=== PATIENT | female | born 1975 | race Caucasian/White ===

== ENCOUNTER 2018-03-07 10:13 | Day surgery (SDC) | payer OTHER ==
[2018-02-27 16:22] VITALS: BMI 22.8
[2018-03-07] MEDS ORDERED: PROPOFOL 20 ML ONE ×2 (10:19)
[2018-03-07] MEDS ORDERED: LIDOCAINE HCL/PF 2% SDV 5ML VIAL ONE (10:19)
[2018-03-07 11:35] VITALS: TEMP 97.6
[2018-03-07 12:25] VITALS: BP 106/64; PULSE 76
--- NOTE | 2018-03-09 16:13 | PATH ---
Surgical Pathology Report Patient Name: ALEENA ALMARAZ [facility]. Rec. #: [id number] /Age/Gender: 1975 (Age: 43) / F Account: [id number] Location: [facility] Taken: 03/07/2018 Received: 03/07/2018 Reported: 03/09/2018 Physicians: Yue Mary M.D. Specimen(s) Received A: BX SECOND PORTION OF DUODENUM B: BX ANTRUM C: BX GE JUNCTION Clinical History Anemia Postoperative diagnosis: Gastritis Final Diagnosis A. SECOND PORTION OF DUODENUM, BIOPSY: DUODENAL MUCOSA WITH NO PATHOLOGIC FINDINGS. B. ANTRUM, BIOPSY: SEVERE CHRONIC ACTIVE GASTRITIS. IMMUNOSTAIN SHOWS NUMEROUS H. PYLORI ORGANISMS. C. GE JUNCTION, BIOPSY: ESOPHAGOGASTRIC JUNCTIONAL (SQUAMOCOLUMNAR) MUCOSA SHOWING MODERATE CHRONIC INFLAMMATION AND REFLUX-ASSOCIATED CHANGES. NEGATIVE FOR INTESTINAL METAPLASIA. Electronically Signed Kinjal Blake M.D. Gross Description A. Received in formalin, labeled "biopsy second portion of duodenum" is a sharma, irregular portion of soft tissue measuring 0.3 cm. in greatest dimension. The specimen is submitted in toto in one cassette. B. Received in formalin, labeled "biopsy antrum" are 2 sharma, irregular portions of soft tissue measuring 0.3 and 0.4 cm. in greatest dimension. The specimens are submitted in toto in one cassette. C. Received in formalin, labeled "biopsy GE junction" is a sharma, irregular portion of soft tissue measuring 0.3 cm. in greatest dimension. The specimen is submitted in toto in one cassette. 03/08/201803/08/2018
== END 2018-03-07 12:15 | disposition home or self-care (01) ==
LOC: FASU-ENDO 10:13
PROVIDERS: ATTEND Internal Medicine Gastroenterology
PROC: 0DB68ZX Excision of Stomach, Via Natural or Artificial Opening Endoscopic, Diagnostic (ICD-10-PCS; 2018-03-07)
PROC: 0DB48ZX Excision of Esophagogastric Junction, Via Natural or Artificial Opening Endoscopic, Diagnostic (ICD-10-PCS; 2018-03-07)
PROC: 0DB98ZX Excision of Duodenum, Via Natural or Artificial Opening Endoscopic, Diagnostic (ICD-10-PCS; principal; 2018-03-07 10:45)
DX: D46.9 Myelodysplastic syndrome, unspecified (principal); K29.50 Unspecified chronic gastritis without bleeding; K21.0 Gastro-esophageal reflux disease with esophagitis; B96.81 Helicobacter pylori [H. pylori] as the cause of diseases classified elsewhere
CPT/HCPCS: 84703; 88305-TC; 88342-TC

== ENCOUNTER 2018-07-16 14:37 | Day surgery (SDC) | payer OTHER ==
[2018-07-16] MEDS ORDERED: IRON SUCROSE INJECTION 200 MG in SODIUM CHLORIDE 100 ML IVPB ONE (15:15)
[2018-07-16 15:49] VITALS: BP 110/72; PULSE 74; TEMP 98.4
== END 2018-07-16 15:49 | disposition home or self-care (01) ==
LOC: FINFUSION 14:37 → FM/S 14:39 → FINFUSION 15:49
PROVIDERS: ATTEND Internal Medicine Hematology & Oncology
PROC: 3E033GC Introduction of Other Therapeutic Substance into Peripheral Vein, Percutaneous Approach (ICD-10-PCS; principal; 2018-07-16)
DX: D50.9 Iron deficiency anemia, unspecified (principal)
CPT/HCPCS: 96365; J1756

== ENCOUNTER 2019-11-20 11:56 | Day surgery (SDC) | payer OTHER ==
[2019-11-19 13:10] VITALS: BMI 22.1
[2019-11-20] MEDS ORDERED: PROPOFOL 20 ML ONE (12:26)
[2019-11-20 14:15] VITALS: TEMP 97.5
[2019-11-20 14:19] VITALS: BP 96/62; PULSE 70
--- NOTE | 2019-11-25 14:58 | PATH ---
Surgical Pathology Report Patient Name: ALEENA ALMARAZ [facility]. Rec. #: [id number] /Age/Gender: 1975 (Age: 44) / F Account: [id number] Location: [facility] Taken: 11/20/2019 Received: 11/20/2019 Reported: 11/25/2019 Physicians: Yue Mary M.D. Specimen(s) Received A: SECOND PORTION DUODENUM B: GASTRIC ANTRUM C: GE JUNCTION D: MID ESOPHAGUS Clinical History Dysphagia Postoperative diagnosis: Gastritis Final Diagnosis A. DUODENUM, SECOND PORTION, BIOPSY: DUODENAL MUCOSA WITHOUT SIGNIFICANT PATHOLOGIC FINDINGS. B. GASTRIC ANTRUM, BIOPSY: GASTRIC ANTRAL MUCOSA WITH SEVERE CHRONIC ACTIVE GASTRITIS. IMMUNOHISTOCHEMICAL STAIN FOR H. PYLORI IS POSITIVE (MANY). C. GE JUNCTION, BIOPSY: GASTRIC CARDIAC TYPE MUCOSA WITH MODERATE CHRONIC ACTIVE GASTRITIS. NO SQUAMOUS MUCOSA, INTESTINAL METAPLASIA, OR DYSPLASIA IDENTIFIED. IMMUNOHISTOCHEMICAL STAIN FOR H. PYLORI IS POSITIVE (FEW). D. MID ESOPHAGUS, BIOPSY: SQUAMOUS MUCOSA WITH CHANGES OF MILD REFLUX TYPE ESOPHAGITIS. Positive and negative controls (internal if applicable) show appropriate results. Electronically Signed Yue Brandon M.D. Gross Description A. Received in formalin, labeled "biopsy second portion of duodenum" is a sharma, irregular portion of soft tissue measuring 0.5 cm. in greatest dimension. The specimen is submitted in toto in one cassette. B. Received in formalin, labeled "biopsy gastric antrum" is a sharma, irregular portion of soft tissue measuring 0.4 cm. in greatest dimension. The specimen is submitted in toto in one cassette. C. Received in formalin, labeled "biopsy GE junction" is a sharma, irregular portion of soft tissue measuring 0.3 cm. in greatest dimension. The specimen is submitted in toto in one cassette. D. Received in formalin, labeled "biopsy mid esophagus" is a sharma, irregular portion of soft tissue measuring 0.2 cm. in greatest dimension. The specimen is submitted in toto in one cassette. 11/21/2019 saudi11/21/2019
== END 2019-11-20 14:26 | disposition home or self-care (01) ==
LOC: FASU 11:56
PROVIDERS: ATTEND Internal Medicine Gastroenterology
PROC: 0DB68ZX Excision of Stomach, Via Natural or Artificial Opening Endoscopic, Diagnostic (ICD-10-PCS; 2019-11-20)
PROC: 0DB28ZX Excision of Middle Esophagus, Via Natural or Artificial Opening Endoscopic, Diagnostic (ICD-10-PCS; 2019-11-20)
PROC: 0DB48ZX Excision of Esophagogastric Junction, Via Natural or Artificial Opening Endoscopic, Diagnostic (ICD-10-PCS; 2019-11-20)
PROC: 0DB98ZX Excision of Duodenum, Via Natural or Artificial Opening Endoscopic, Diagnostic (ICD-10-PCS; principal; 2019-11-20 13:30)
DX: K29.50 Unspecified chronic gastritis without bleeding (principal); B96.81 Helicobacter pylori [H. pylori] as the cause of diseases classified elsewhere; K21.0 Gastro-esophageal reflux disease with esophagitis; R13.10 Dysphagia, unspecified
CPT/HCPCS: 84703; 88305-TC; 88342-TC

== ENCOUNTER 2022-01-31 12:19 | Observation (INO) | payer OTHER ==
[2022-01-31 13:20] LABS: HEMATOCRIT 18.7 % (32.4-45.2); HEMOGLOBIN 5.5 G/dL (10.7-15.3); MCHC 29.4 g/dl (32.0-36.0); MEAN CELL VOLUME 57.4 fl (80-96); MEAN PLT VOLUME 7.3 fl (7.5-11.1); PLATELET COUNT 654.9 10^3/uL (134-434); RBC 3.25 10^6/uL (3.60-5.2); RDW 21.8 % (11.6-15.6); WHITE BLOOD COUNT 8.4 10^3/uL (4.0-10.8)
[2022-01-31 13:30] LABS: MCH 16.9 pg (25.7-33.7)
[2022-01-31 13:35] LABS: ALBUMIN 3.7 g/dl (3.4-5.0); ALK PHOS 72 U/L (45-117); ANION GAP 7 MMOL/L (8-16); BILIRUBIN,TOTAL 0.5 mg/dl (0.2-1); CALCIUM 8.6 mg/dl (8.5-10); CHLORIDE 99 mmol/L (98-107); CO2 25 mmol/L (21-32); CREATININE 0.7 mg/dl (0.55-1.3); GLUCOSE,RANDOM 88 mg/dl (74-106); SGOT/AST 13 U/L (15-37); SGPT/ALT 8 U/L (13-61); SODIUM 131 mmol/L (136-145); TOT PROT 7.3 g/dl (6.4-8.2)
[2022-01-31 14:13] LABS: ANISOCYTOSIS 2+
[2022-01-31 14:14] LABS: PLATELET ESTIMATE INCREASED
[2022-01-31 16:45] VITALS: BMI 22.0
[2022-01-31] MEDS ORDERED: IRON SUCROSE INJECTION 100 MG in SODIUM CHLORIDE 95 ML IVPB ONE (17:25)
[2022-01-31] MEDS ORDERED: SODIUM CHLORIDE 0.9% 500 ML INFUS.BAG IV ONE (17:55)
[2022-01-31] MEDS: PANTOPRAZOLE 40 MG TABLET PO SCH ×2 (18:01→18:09)
[2022-01-31] MEDS ORDERED: ACETAMINOPHEN 1000 MG/100 ML BAG IVPB PRN (19:25)
[2022-02-01] MEDS ORDERED: SODIUM CHLORIDE 0.9% 500 ML INFUS.BAG IV ONE (06:24)
[2022-02-01 07:44] LABS: ALBUMIN 3.1 g/dl (3.4-5.0); BILIRUBIN,TOTAL 1.1 mg/dl (0.2-1); CALCIUM 8.2 mg/dl (8.5-10); CREATININE 0.7 mg/dl (0.55-1.3); TOT PROT 6.1 g/dl (6.4-8.2)
[2022-02-01] MEDS ORDERED: SODIUM CHLORIDE 1,000 ML IV SCH (07:45)
[2022-02-01] MEDS: PANTOPRAZOLE 40 MG TABLET PO SCH (09:09)
[2022-02-01 11:13] LABS: BASO % 0.6 % (0-2.0); EOS % 2.2 % (0-4.5); HEMATOCRIT 25.3 % (32.4-45.2); HEMOGLOBIN 7.5 GM/dL (10.7-15.3); LYMPH % 24.5 % (8-40); MCH 18.9 pg (25.7-33.7); MCHC 29.6 g/dl (32.0-36.0); MEAN CELL VOLUME 63.8 fl (80-96); MEAN PLT VOLUME 7.7 fl (7.5-11.1); MONO % 8.9 % (3.8-10.2); NEUT % 63.8 % (42.8-82.8); PLATELET COUNT 586 10^3/uL (134-434); RBC 3.96 M/mm3 (3.60-5.2); WHITE BLOOD COUNT 7.4 K/mm3 (4.0-10.0)
[2022-02-01] MEDS ORDERED: IRON SUCROSE INJECTION 200 MG in SODIUM CHLORIDE 90 ML IVPB ONE (12:27)
[2022-02-01 12:32] LABS: ANISOCYTOSIS 2+; MACROCYTOSIS 0; OVALOCYTE 0
[2022-02-01 14:19] LABS: HEMATOCRIT 24.3 % (32.4-45.2); HEMOGLOBIN 7.5 G/dL (10.7-15.3); MCH 20.1 pg (25.7-33.7); MEAN CELL VOLUME 64.7 fl (80-96); MEAN PLT VOLUME 7.2 fl (7.5-11.1); PLATELET COUNT 523.1 10^3/uL (134-434); RBC 3.75 10^6/uL (3.60-5.2); RDW 26.1 % (11.6-15.6); WHITE BLOOD COUNT 7.3 10^3/uL (4.0-10.8)
[2022-02-01 18:15] VITALS: BP 111/59; PULSE 75; RESP 17; TEMP 98.1
== END 2022-02-01 18:05 | disposition home or self-care (01) ==
LOC: FER 12:19 → FM/S 14:44 → INTOOBSV 14:44 → FM/S 15:17
PROVIDERS: ATTEND Internal Medicine
PROC: 3E033GC Introduction of Other Therapeutic Substance into Peripheral Vein, Percutaneous Approach (ICD-10-PCS; principal; 2022-01-31)
PROC: 3E0337Z Introduction of Electrolytic and Water Balance Substance into Peripheral Vein, Percutaneous Approach (ICD-10-PCS; 2022-01-31)
PROC: 30233N1 Transfusion of Nonautologous Red Blood Cells into Peripheral Vein, Percutaneous Approach (ICD-10-PCS; 2022-01-31)
DX: D50.9 Iron deficiency anemia, unspecified (principal); D25.9 Leiomyoma of uterus, unspecified; D64.89 Other specified anemias; Z29.8 Encounter for other specified prophylactic measures
CPT/HCPCS: 36415; 36430; 71046-TC-FY; 71275-TC; 80053; 82272; 82607; 82728; 83010; 83540; 83550; 83615; 84439; 84443; 84484; 84703; 85025; 85027; 85045; 85379; 86850; 86900; 86901; 86922; 93005; 96365; 99285-25; C9803-CS; G0378; J1756; P9058; Q9967; U0003; U0005

== ENCOUNTER 2023-04-12 09:04 | Day surgery (SDC) | payer OTHER ==
[2023-04-05 15:31] VITALS: BMI 23.0
[2023-04-12 11:01] VITALS: RESP 18; TEMP 98
[2023-04-12 11:25] VITALS: BP 118/60; PULSE 71
== END 2023-04-12 11:50 | disposition home or self-care (01) ==
LOC: FASU-ENDO 09:04
PROVIDERS: ATTEND Internal Medicine Gastroenterology
PROC: 0DJD8ZZ Inspection of Lower Intestinal Tract, Via Natural or Artificial Opening Endoscopic (ICD-10-PCS; principal; 2023-04-12 10:28)
DX: Z12.11 Encounter for screening for malignant neoplasm of colon (principal); K64.1 Second degree hemorrhoids
CPT/HCPCS: 81025

== ENCOUNTER 2024-05-16 10:26 | Day surgery (SDC) | payer OTHER ==
[2024-05-16] MEDS: DEXAMETHASONE SODIUM PHOSPHATE 10 MG in SODIUM CHLORIDE 50 ML IVPB ONE (10:30)
[2024-05-16] MEDS: IRON SUCROSE INJECTION 200 MG in SODIUM CHLORIDE 100 ML IVPB ONE (10:46)
[2024-05-16 10:52] LABS: BASO % 0.9 % (0-2.0); EOS % 1.3 % (0-4.5); HEMATOCRIT 34.4 % (32.4-45.2); HEMOGLOBIN 10.6 GM/dL (10.7-15.3); LYMPH % 41.7 % (8-40); MCH 22.3 pg (25.7-33.7); MCHC 30.9 g/dl (32.0-36.0); MEAN CELL VOLUME 72.2 fl (80-96); MEAN PLT VOLUME 8.3 fl (7.5-11.1); MONO % 8.1 % (3.8-10.2); PLATELET COUNT 446 10^3/uL (134-434); RBC 4.77 M/mm3 (3.60-5.2); RDW 19.6 % (11.6-15.6); WHITE BLOOD COUNT 3.6 K/mm3 (4.0-10.0)
[2024-05-16 16:56] VITALS: BP 105/62; PULSE 78; RESP 20; TEMP 98.2
== END 2024-05-16 11:30 | disposition home or self-care (01) ==
LOC: JONCCHEMO 10:26
PROVIDERS: ATTEND Internal Medicine Hematology & Oncology
PROC: 3E033GC Introduction of Other Therapeutic Substance into Peripheral Vein, Percutaneous Approach (ICD-10-PCS; principal; 2024-05-16)
DX: E61.1 Iron deficiency (principal)
CPT/HCPCS: 36415; 82728; 83540; 83550; 85025; 96365; J1756

== ENCOUNTER 2024-05-21 10:08 | Day surgery (SDC) | payer OTHER ==
[2024-05-21] MEDS ORDERED: DEXAMETHASONE SOD PHOSPHATE 10 MG/1 ML VIAL ONE (10:14)
[2024-05-21] MEDS: DEXAMETHASONE SODIUM PHOSPHATE 10 MG in SODIUM CHLORIDE 50 ML IVPB ONE (10:23)
[2024-05-21] MEDS: IRON SUCROSE INJECTION 200 MG in SODIUM CHLORIDE 100 ML IVPB ONE (10:38)
[2024-05-21 13:09] VITALS: RESP 18; TEMP 97.6
[2024-05-21 13:37] VITALS: BP 115/80; PULSE 75
== END 2024-05-21 11:45 | disposition home or self-care (01) ==
LOC: JONCNONCHE 10:08 → J7W 10:12 → JONCNONCHE 11:45
PROVIDERS: ATTEND Internal Medicine Hematology & Oncology
PROC: 3E033GC Introduction of Other Therapeutic Substance into Peripheral Vein, Percutaneous Approach (ICD-10-PCS; principal; 2024-05-21)
DX: D50.9 Iron deficiency anemia, unspecified (principal)
CPT/HCPCS: 96365; J1100; J1756